=== PATIENT | female | born 1990 | race Caucasian/White ===

== ENCOUNTER 2018-11-24 11:46 | Inpatient (IN) | payer MEDICAID ==
[~2018-11-24] VITALS: Ht 167.6 cm; Wt 68.2 kg
[2018-11-24 12:38] LABS: APPEARANCE HAZY (CLEAR); BILIRUBIN 3+ (NEGATIVE); COLOR DK YELLOW (YELLOW); GLUCOSE NEGATIVE (NEGATIVE); KETONE MODERATE mg/dL (NEGATIVE); NITRITE NEGATIVE (NEGATIVE); PROTEIN TRACE mg/dL (NEGATIVE); SPECIFIC GRAVITY 1.015 (1.005-1.020)
[2018-11-24 12:40] LABS: BASOPHILS 1.4 % (0-2); EOSINOPHILS 7.4 % (0-7); HEMATOCRIT 46.5 % (36.0-48.0); HEMOGLOBIN 16.8 g/dL (12-16); IMMATURE GRANULOCYTES 0.1 % (0-5); LYMPHOCYTES 23.1 % (15-50); MCH 29.1 pg (26.0-34.0); MCHC 36.1 g/dL (31.0-37.0); MCV 80.4 fL (80.0-100.0); MEAN PLATELET VOLUME 10.7 fL (7.4-10.4); MONOCYTES 5.7 % (2-11); NEUTROPHILS 62.3 % (40-80); PLATELET COUNT 192 10x3/uL (130-400); RBC 5.78 10x6/uL (4.00-5.40); RDW 14.1 % (11.5-14.5); WBC 8.5 10x3/uL (4.8-10.8)
[2018-11-24 12:40] LABS: BACTERIA MODERATE /hpf (NONE SEEN); HYALINE CAST OCC /lpf (NONE SEEN); MUCUS >1+ /lpf (NONE SEEN); RED CELLS - URINE RARE /hpf (0-5); WHITE CELLS - URINE 0-5 /hpf (0-5)
[2018-11-24 13:02] LABS: HCG SERUM NEGATIVE (NEGATIVE)
--- NOTE | 2018-11-24 13:08 | NUR ---
PT STABLE, CALL LIGHT WITHIN REACH, DENIES NEEDS, SONAL DELANEY IN ROOM AT THIS TIME, WILL CONTINUE TO MONITOR.
[2018-11-24 13:09] VITALS: BP 117/68
[2018-11-24 13:10] LABS: ALKALINE PHOSPHATASE 339 U/L (46-116); BILIRUBIN - TOTAL 5.15 mg/dL (0.2-1.3); CALC OSMOLALITY 270 mosm/kg (275-300); CALCIUM 8.4 mg/dL (8.5-10.1); CARBON DIOXIDE 24.9 mmol/L (21.0-32.0); CHLORIDE - SERUM 101 mmol/L (98-107); CREATININE - SERUM 0.6 mg/dL (0.6-1.3); GLUCOSE 101 mg/dL (74-106); POTASSIUM - SERUM 3.7 mmol/L (3.5-5.1); PROTEIN - SERUM 7.1 g/dL (6.4-8.2); SODIUM 136 mmol/L (136-145); UREA NITROGEN 9 mg/dL (7-18); eGFR NON AFRICAN AMERICAN > 90 mL/min (90-120)
[2018-11-24 13:12] LABS: ALT (SGPT) 2716 U/L (10-68)
[2018-11-24 14:14] VITALS: BP 118/78
--- NOTE | 2018-11-24 14:14 | NUR ---
PT STABLE, CALL LIGHT WITHIN REACH, DENIES NEEDS, WILL CONTINUE TO MONITOR.
[2018-11-24 15:39] VITALS: BP 122/71
--- NOTE | 2018-11-24 15:39 | NUR ---
PT STABLE, CALL LIGHT WITHIN REACH, DENIES NEEDS, WILL CONTINUE TO MONITOR.
[2018-11-24 16:55] LABS: INR 1.44 (0.85-1.17); PROTIME 16.9 SECONDS (11.6-15.0)
[2018-11-24 17:06] LABS: BILIRUBIN - DIRECT 3.78 mg/dL (0.00-0.30)
[2018-11-24 17:39] VITALS: BP 120/71
--- NOTE | 2018-11-24 18:15 | NUR ---
PT REPORT CALLED TO [facility] ROOM # [id number]. PT STABLE, CALL LIGHT WITHIN REACH, WILL CONTINUE TO MONITOR.
--- NOTE | 2018-11-24 18:28 | NUR ---
ns bolus infusion complete at this time.
--- NOTE | 2018-11-24 19:05 | NUR ---
PT ARRIVED TO LABOR AND DELIVERY VIA WC WITH ER STAFF. PT TAKEN TO ROOM 1273. ROOM ORIENTATION PROVIDED. PT DENIES ANY NEEDS AT THIS TIME. BED IN LOW POSITION, SIDE RAILS UP TIMES 2, CALL LIGHT AND PHONE IN REACH. WILL CONT TO MONITOR PT STATUS AND RETURN TO PERFORM NILDA.
[2018-11-24 21:16] VITALS: BP 116/55; BMI 24.2
[2018-11-24] MEDS ORDERED: METHADOSE40 MG PO (21:16)
--- NOTE | 2018-11-24 21:20 | NUR ---
RN TO PT BS FOR ADMISSION ASSESSMENT. PT RESTING IN BED IN LEFT LATERAL POSITION, WITH EYES CLOSED, IN NO ACUTE DISTRESS. PT AWAKENS EASILY WHEN SPOKEN TO. PT IS A 28 YO WF ADMITTED WITH CHOLEDOCHOLITIASIS BY DR. RAMON. PT ADMITTED FROM ER. PT SCHEDULED FOR GALLBLADDER US IN AM AND POSSIBLE REMOVAL OF GALLBLADDER. SEE NILDA FOR DETAILS. NS INFUSING VIA PUMP AT 125 CC/HR TO EXISTING 20G IV IN LEFT AC. NO REDNESS, EDEMA, OR DRAINAGE NOTED TO SITE. POC DISCUSSED WITH PT. QUESTIONS ANSWERED. PT AWARE OF BEING NPO AFTER MIDNIGHT. BED IN LOW POSITION, SIDE RAILS UP TIMES 2, CALL LIGHT AND PHONE IN REACH. NO FAMILY AT BS. WILL CONT TO MONITOR PT STATUS.
--- NOTE | 2018-11-24 21:55 | NUR ---
FAN PROVIDED TO PT PER REQUEST. PT DENIES ANY FURTHER NEEDS. BED IN LOW POSITION, SIDE RAILS UP TIMES 2, CALL LIGHT AND PHONE IN REACH. WILL CONT TO MONITOR PT STATUS.
[2018-11-24 23:54] VITALS: BP 140/80
--- NOTE | 2018-11-24 23:54 | NUR ---
RN TO PT BS. PT RESTING IN BED IN RIGHT LATERAL POSITION, IN NO ACUTE DISTRESS. VS TAKEN AND WNL. PT ASSISTED TO BR. PT AMBUALTES WITH MINIMAL ASSISTANCE. PT DENIES ANY FURTHER NEEDS. BED IN LOW POSITION, SIDE RAILS UP TIMES 2, CALL LIGHT AND PHONE IN REACH. WILL CONT TO MONITOR PT STATUS.
--- NOTE | 2018-11-25 00:30 | NUR ---
DR PARIKH TO PT ROOM TO SPEAK WITH PT.
--- NOTE | 2018-11-25 00:35 | NUR ---
VERBAL ORDER RECEIVED FOR STAT ACETOMINOPHEN LEVEL, ORDER ENTERED AND PHONE LAB, SPOKE WITH NIMA TO INFORM OF STAT DRAW NEEDED. STATES ADILENE WILL BE DOWN SHORTLY TO DRAW LABS ORDERED. INFORMED DR PARIKH OF INFORMATION RELAYED.
--- NOTE | 2018-11-25 00:54 | NUR ---
CLINICAL LAB AT PT BS FOR DRAW.
--- NOTE | 2018-11-25 01:31 | NUR ---
TYLENOL LEVEL 0.0. NEW ORDERS FROM DR. PARIKH NOTED. CALLED DIRECTOR ELECTRONICS FOR MERREM 1GM AND VITAMIN K 10MG.
--- NOTE | 2018-11-25 02:41 | NUR ---
RN TO PT BS. PT RESTING IN BED RIGHT LATERAL POSITION, WITH EYES CLOSED. RESPIRATIONS EVEN AND UNLABORED. PT AWAKENS EASILY WHEN SPOKEN TO. SCHEDULED DOSE OF MERREM 1GM HUNG TO INFSUE VIA IVPB. 10MG VITAMIN K GIVEN SQ TO LEFT UPPER ARM. PT DENIES ANY NEEDS AT THIS TIME. BED IN LOW POSITION, SIDE RAILS UP TIMES 2, CALL LIGHT AND PHONE IN REACH. WILL CONT TO MONITOR PT STATUS.
--- NOTE | 2018-11-25 04:04 | NUR ---
RN TO PT BS FOR ROUNDS. PT RESTING IN BED IN LEFT LATERAL POSITION, WITH EYES CLOSED, IN NO ACUTE DISTRESS. RESPIRATIONS EVEN AND UNLABORED. PT AWAKENS EASILY WHEN SPOKEN TO. VS TAKEN AND WNL. NEW BAG OF NS HUNG TO INFUSE VIA PUMP AT 125ML/HR. ASSISTED PT TO BR. PT DENIES ANY FURTHER NEEDS AT THIS TIME. BED IN LOW POSITION, SIDE RAILS UP TIMES 2, CALL LIGHT AND PHONE IN REACH. WILL CONT TO MONITOR PT STATUS.
[2018-11-25 04:05] VITALS: BP 118/70
--- NOTE | 2018-11-25 05:58 | NUR ---
CORE STACKER HERE FOR AM LAB DRAW.
--- NOTE | 2018-11-25 06:01 | NUR ---
CLINICAL LAB AT PT BS FOR AM DRAW
[2018-11-25 06:22] VITALS: Ht 167.6 cm; Wt 68.2 kg
[2018-11-25 07:38] LABS: BASOPHILS 0.7 % (0-2); EOSINOPHILS 8.5 % (0-7); HEMOGLOBIN 14.6 g/dL (12-16); IMMATURE GRANULOCYTES 0.1 % (0-5); LYMPHOCYTES 40.3 % (15-50); MCH 28.5 pg (26.0-34.0); MCHC 35.6 g/dL (31.0-37.0); MCV 79.9 fL (80.0-100.0); MEAN PLATELET VOLUME 11.5 fL (7.4-10.4); MONOCYTES 7.2 % (2-11); NEUTROPHILS 43.2 % (40-80); PLATELET COUNT 187 10x3/uL (130-400); RBC 5.13 10x6/uL (4.00-5.40); RDW 14.4 % (11.5-14.5); WBC 8.5 10x3/uL (4.8-10.8)
[2018-11-25 07:54] LABS: UDS - AMPHET NEGATIVE QUAL (NEGATIVE); UDS - BARB NEGATIVE QUAL (NEGATIVE); UDS - BENZO NEGATIVE QUAL (NEGATIVE); UDS - COCAINE NEGATIVE QUAL (NEGATIVE); UDS - OPIATE NEGATIVE QUAL (NEGATIVE); UDS - PCP NEGATIVE QUAL (NEGATIVE); UDS - THC NEGATIVE QUAL (NEGATIVE)
--- NOTE | 2018-11-25 07:58 | NUR ---
Called pharmacy requesting scheduled protonix med that was ordered for 0600 that has not been brought to unit yet. States med is ready and has not been brought yet but will be brought soon.
[2018-11-25 08:00] VITALS: BP 115/72
[2018-11-25 08:01] LABS: ALBUMIN 2.4 g/dL (3.4-5.0); ALKALINE PHOSPHATASE 266 U/L (46-116); AMYLASE - SERUM 13 U/L (25-115); CALCIUM 7.9 mg/dL (8.5-10.1); CARBON DIOXIDE 23.3 mmol/L (21.0-32.0); CHLORIDE - SERUM 107 mmol/L (98-107); CREATININE - SERUM 0.5 mg/dL (0.6-1.3); LIPASE 70 U/L (73-393); POTASSIUM - SERUM 3.7 mmol/L (3.5-5.1); PROTEIN - SERUM 5.9 g/dL (6.4-8.2); SODIUM 139 mmol/L (136-145); eGFR NON AFRICAN AMERICAN > 90 mL/min (90-120)
[2018-11-25 08:04] LABS: INR 1.6 (0.85-1.17); PROTIME 18.5 SECONDS (11.6-15.0)
[2018-11-25 08:08] LABS: ALT (SGPT) 1827 U/L (10-68); CALC OSMOLALITY 272 mosm/kg (275-300); GLUCOSE 64 mg/dL (74-106); UREA NITROGEN 5 mg/dL (7-18)
--- NOTE | 2018-11-25 08:22 | NUR ---
AM ASSESSMENT COMPLETE. PT SLEEPING UPON ENTERING ROOM. EASILY WAKES. DENIES PAIN AT REST. REPORTS TENDERNESS TO PALPATION IN RUQ. DENIES NEED FOR PAIN MED. IV INFUSING. NO REDNESS/EDEMA TO SITE. VS OBTAINED PRIOR TO ASSESSMENT. PT DENIES NO NEEDS AT THIS TIME. HAS C/L IN REACH. BED LOW. SR UPX2.
--- NOTE | 2018-11-25 08:44 | NUR ---
Dr. Hull in room speaking with pt. States pt may have ice chips and sips of water.
--- NOTE | 2018-11-25 08:46 | NUR ---
Pt vomiting at this time. Request zofran for vomiting.
--- NOTE | 2018-11-25 08:50 | NUR ---
Small cup of ice water and large cup of ice chips provided.
[2018-11-25 11:30] VITALS: BP 115/73
--- NOTE | 2018-11-25 11:55 | NUR ---
CALLED PLACED TO DR. RAMON REGARDING PTS REQUEST FOR METHADONE. PT REPORTING SHE HAS NOT TAKEN IN OVER 24 HOURS AND SHE TAKES MEDICATION EVERY DAY. PT HAS METHADONE PRESCRIPTION BOTTLE WITH HER SHOWING EXACT AMOUNT OF MEDICATION SHE IS PRESCRIBED. AMOUNT IS 95MG LIQUID METHADONE DAILY. STATES PT MAY HAVE THIS MEDICATION.
[2018-11-25 17:00] VITALS: BP 107/55
--- NOTE | 2018-11-25 17:30 | NUR ---
Pt requesting to eat. Last order was for pt to be NPO. Instructed pt would page MD to verify order and POC. Pt verbalizes understanding.
--- NOTE | 2018-11-25 17:45 | NUR ---
Dr. Kurtis cadena.
--- NOTE | 2018-11-25 18:13 | NUR ---
Spoke with Dr. Hull to ask if pt needs to remain NPO for any procedures she may be having done today or tomorrow. Dr. Hull states pt is not having anything done tonight by him and Dr. Osorio should have seen pt today and consulted. States GI should be taking over case and he will no longer be involved if surgery is not indicated. Does give order for clear liquid diet until midnight, then after GI can continue order if indicated. No other orders rcvd.
--- NOTE | 2018-11-25 18:26 | NUR ---
PT REPORTS APPROX 1 YEAR AGO SHE HAD A FALSE POSITIVE HEPATITIS RESULT THAT WAS RULED OUT BY A DR JAILENE CRUZ IN [place]. PT REPORTS SHE WILL GET THE INFORMATION OF THE CLINIC FOR THE MD TREATING HER HERE.
--- NOTE | 2018-11-25 18:27 | NUR ---
PT GIVEN POPCICLE, JELLO, AND SPRITE.
[2018-11-25 19:17] VITALS: BP 125/59
--- NOTE | 2018-11-25 19:17 | NUR ---
REC'D PT LYING ON HER LEFT SIDE. RESP EVEN AND UNLABORED. LUNGS CLEAR BILATERALLY. BOWEL SOUNDS PRESENT X4. ABDOMEN TENDER TO TOUCH. IV TO LEFT FOREARM, WITH NO S/S INFILTRATION. PT DENIES NEEDS AT THIS TIME. CALL LIGHT IN REACH, BED DOWN LOW. ENID NICHOLS
--- NOTE | 2018-11-25 21:05 | NUR ---
NEW BAG OF NS HUNG. PT RESTING QUIETLY ON HER RIGHT SIDE. ENID NICHOLS
--- NOTE | 2018-11-25 23:30 | NUR ---
PT RESTING WITH EYES CLOSED. RESP EVEN AND UNLABORED. LEFT UNDISTURBED AT THIS TIME. ENID NICHOLS
--- NOTE | 2018-11-26 01:16 | NUR ---
ANTIBIOTIC BEGUN, VS TAKEN AND WNL. PT DECLINES PAIN MEDICATION AT THIS TIME. ENID NICHOLS
[2018-11-26 01:20] VITALS: BP 116/60
--- NOTE | 2018-11-26 02:57 | NUR ---
ROOM CHECK, PT RESTING WITH EYES CLOSED ON HER LEFT SIDE. RESP EVEN AND UNLABORED. LEFT UNDISTURBED. ENID NICHOLS
[2018-11-26 04:44] VITALS: BP 101/66
--- NOTE | 2018-11-26 04:46 | NUR ---
PT RESTING WITH EYES CLOSED. AWAKENS EASILY TO VERBAL STIMULI. VS WNL. DENIES NEEDS AT THIS TIME. ENID NICHOLS
[2018-11-26 06:23] LABS: HEMOGLOBIN 14.2 g/dL (12-16); MCH 28.5 pg (26.0-34.0); MCHC 35.5 g/dL (31.0-37.0); MCV 80.2 fL (80.0-100.0); MEAN PLATELET VOLUME 10.6 fL (7.4-10.4); PLATELET COUNT 187 10x3/uL (130-400); RBC 4.99 10x6/uL (4.00-5.40); RDW 14.8 % (11.5-14.5); WBC 10.1 10x3/uL (4.8-10.8)
[2018-11-26 06:47] LABS: % SATURATION 75 % (15-55); IRON 157 ug/dl (35-150); TOTAL IRON BIND CAPACITY 209 ug/dl (260-445)
[2018-11-26 06:50] LABS: UNSAT IRON BIND CAPACITY 52 ug/dl (150-375)
[2018-11-26 06:55] LABS: ALBUMIN 2.4 g/dL (3.4-5.0); ALKALINE PHOSPHATASE 237 U/L (46-116); BILIRUBIN - TOTAL 4.69 mg/dL (0.2-1.3); CALCIUM 7.8 mg/dL (8.5-10.1); CARBON DIOXIDE 26.9 mmol/L (21.0-32.0); CHLORIDE - SERUM 108 mmol/L (98-107); CREATININE - SERUM 0.6 mg/dL (0.6-1.3); POTASSIUM - SERUM 4.1 mmol/L (3.5-5.1); PROTEIN - SERUM 5.4 g/dL (6.4-8.2); SODIUM 142 mmol/L (136-145); UREA NITROGEN 4 mg/dL (7-18); eGFR NON AFRICAN AMERICAN > 90 mL/min (90-120)
[2018-11-26 07:00] LABS: CHOL - HDL RATIO 12.2 ratio (2.3-4.1); LDL-HDL RATIO 7.4 ratio (1.5-3.5); PRE-ALBUMIN 7.1 mg/dL (18.0-35.7)
[2018-11-26 07:05] LABS: APTT 37.2 SECONDS (22.8-39.4); INR 1.29 (0.85-1.17); PROTIME 15.5 SECONDS (11.6-15.0)
[2018-11-26 07:06] LABS: ALT (SGPT) 1181 U/L (10-68); CALC OSMOLALITY 277 mosm/kg (275-300); GLUCOSE 64 mg/dL (74-106)
[2018-11-26 08:22] LABS: HEPATITIS C ANTIBODY >11.0 S/CO RAT (0.0-0.9)
[2018-11-26 08:30] VITALS: BP 135/78
--- NOTE | 2018-11-26 08:45 | NUR ---
AM ASSESSMENT COMPLETED CHARTED ON FLOWSHEE, RATES PAIN AT 0/10, DENIES ANY NAUSEA OR VOMITING ACTUALLY STATES "I FEEL SO MUCH BETTER THAN WHEN I GOT HERE" IV TO LEFT AC INFUSING PER ORDERS WITH NO COMPLAINTS OF PAIN AT SITE. PT UP TO VOID PER SELF AND DENIES PAIN OR BURNING. SHE IS QUESTIONING WHAT HER PLAN OF CARE IS AND IF SHE IS GOING TO SURGERY FOR GALLBLADDER REMOVEAL AND IF NOT WHY, ALSO WANTING TO KNOW WHEN SHE MAY GET DISCHARGED. SHE STATES HER UNDERSTANDING THAT AT THIS TIME THERE ARE NO ORDERS THAT ADDRESS THOSE QUESTIONS. REASSURED HER THAT THIS NURSE WOULD CONTACT ONLINE JOURNALIST AND VERIFY WHO NEEDED TO BE CONTACTED FOR FURTHER ORDERS.
[2018-11-26 09:05] LABS: EOSINOPHILS 3 % (0-7); LYMPHOCYTES 48 % (15-50); MONOCYTES 12 % (2-11); NEUTROPHILS 29 % (40-80); ROULEAUX OCC
[2018-11-26 09:06] LABS: PLATELET ESTIMATE NORMAL
--- NOTE | 2018-11-26 09:30 | NUR ---
SUSIE PEREZ. CALLS UNIT REQUESTING UPDATE STATUS ON PATIENT. REPORT GIVEN FROM [facility] NOTES, ALSO REPORTED THAT PT IS GETTING FRUSTRATED AND FEELING LIKE SHE IS GETTING MIXED INFORMATION FOR EACH DOCTOR THAT ROUNDS. INFORMED THAT CASE MANAGEMENT WOULD BE CONTACTED AND TO EXPECT THEM TO COME AND REVIEW CHART AND TALK WITH PATIENT.
--- NOTE | 2018-11-26 11:20 | NUR ---
PT DENIES ANY NEEDS AT THIS TIME. RATES PAIN AT 0/10, SIDE RAILS UP X 2 WITH PHONE AND CALL LIGHT IN REACH..
[2018-11-26 13:41] VITALS: BP 130/68
--- NOTE | 2018-11-26 13:44 | NUR ---
PT SITTING UP IN BED. WATCHES TV. VSS. PT DENIES C/O PAIN OR NEEDS.
--- NOTE | 2018-11-26 14:11 | NUR ---
NEW BAG NS UP AT 125 ML/HR. PIV SITE CLEAR TO LEFT AC. PT DENIES C/O OR NEEDS.
--- NOTE | 2018-11-26 16:16 | NUR ---
DR PARIKH CALLS UNIT STATES THAT SHE HAS SPOKEN TO DR BELLAMY AND DR RAMON, KATI WOULD IS OK FOR DISCHARGE AND WANTS TO SEE PATIENT IN HER OFFICE IN 2 WEEKS.
--- NOTE | 2018-11-26 16:37 | NUR ---
DR BELLAMY CALLS AND VERIFIES HE HAS SPOKEN TO DR PARIKH AND RUTH FOR PT TO D/C HOME.
--- NOTE | 2018-11-26 17:15 | NUR ---
DR RAMON CALLED AND REPORT GIVEN THAT DR PARIKH AND DR BELLAMY BOTH OK WITH PT DISCHARGE. ORDERS RECEIVED.
--- NOTE | 2018-11-26 18:30 | NUR ---
verbal and written discharge instructions gone over, pt states understanding to call and make [address] up [address] Melchor. Amb off unit with family, no distress noted.
[2018-11-27 11:22] LABS: ALPHA FETOPROTEIN -(TUMOR MRK) 2.4 ng/mL (0.0-8.3); HELICOBACTER PYLORI IGM AB <9.0 units (0.0-8.9)
[2018-11-27 12:20] LABS: ANA REFLEX - DIRECT Negative (Negative)
[2018-11-27 13:19] LABS: EBV - EARLY ANTIGEN AB IGG <9.0 U/mL (0.0-8.9); EBV - NUCLEAR ANTIGEN AB IGG <18.0 U/mL (0.0-17.9); EBV VIRAL CAPSID AB IGM <36.0 U/mL (0.0-35.9)
[2018-12-01 12:13] LABS: MITOCHONDRIAL ANTIBODY 10.9 Units (0.0-20.0); SMOOTH MUSCLE ABS (ACTIN) 33 Units (0-19)
== END 2018-11-26 18:30 | disposition home or self-care (01) | DRG 445 ==
LOC: D.ER 11:46 → D.EDHOLD 16:04 → D.LD 16:04
PROVIDERS: Family Medicine; Internal Medicine Gastroenterology; Surgery; ADMIT Internal Medicine Nephrology
DX: K80.50 Calculus of bile duct without cholangitis or cholecystitis without obstruction (principal); F17.213 Nicotine dependence, cigarettes, with withdrawal; K21.9 Gastro-esophageal reflux disease without esophagitis; T39.1X1A Poisoning by 4-Aminophenol derivatives, accidental (unintentional), initial encounter; K75.9 Inflammatory liver disease, unspecified